=== PATIENT | female | born 1990 ===

== ENCOUNTER 2020-05-03 16:42 | Outpatient (REF) | payer BC, SELFPAY ==
[2020-05-08 15:30] LABS: SARS-CoV-2 RNA Undetected (Undetected); SARS-CoV-2 Specimen Source Nasal
== END 2020-05-03 17:02 ==
LOC: NCHCN 16:42
PROVIDERS: Visit Provider Internal Medicine
DX: Z20.828 Contact with and (suspected) exposure to other viral communicable diseases (principal)
CPT/HCPCS: U0003